=== PATIENT | female | born 2000 | race Caucasian/White ===

== ENCOUNTER → 2025-08-08 | Emergency (ER) | payer OTHER ==
[~2025-08-08] VITALS: Ht 147.3 cm; Wt 72.6 kg
[~2025-08-08] MED LIST: ACETAMINOPHEN 500 MG GEL..CAP PO ONE; DEXAMETHASONE SODIUM PHOSPHATE 4 MG/ML VIAL IM ONE; DEXAMETHASONE SODIUM PHOSPHATE 4 MG/ML VIAL ONE; KETO10TA2 PO; KETOROLAC TROMETHAMINE 60 MG VIAL IM ONE; MEDROLPACK PO; METHOCARBAMOL500 MG PO; METHYLPREDNISOLONE SOD SUCC 125 MG VIAL IV ONE; METHYLPREDNISOLONE SOD SUCC 125 MG VIAL ONE; NEURONTIN600 M1 PO; NORFLEX100MG PO; ORPHENADRINE CITRATE 30 MG/ML AMPUL IM ONE; ORPHENADRINE CITRATE 30 MG/ML AMPUL ONE; PEPCID AC20 MG PO
== END | disposition home or self-care (01) ==
LOC: ER 21:11
DX: M54.16 Radiculopathy, lumbar region (principal)